=== PATIENT | male | born 1995 | race Caucasian/White ===

== ENCOUNTER 2020-04-11 10:28 | Emergency (ER) | payer MEDICAID ==
[~2020-04-11] VITALS: Ht 180.3 cm; Wt 88.0 kg
[2020-04-11 11:10] VITALS: BP 119/77
[2020-04-11] MEDS ORDERED: PALI273S IM (11:10)
== END 2020-04-11 12:04 | disposition home or self-care (01) ==
LOC: ED 11:35
DX: J06.9 Acute upper respiratory infection, unspecified (principal); Z20.828 Contact with and (suspected) exposure to other viral communicable diseases
CPT/HCPCS: 71045; 99284; U0001

== ENCOUNTER 2020-12-03 16:32 | Emergency (ER) | payer MEDICAID ==
[~2020-12-03] VITALS: Ht 180.3 cm; Wt 97.2 kg
[~2020-12-03 16:32] MED LIST: PALI273S IM
--- NOTE | 2020-12-03 18:06 | NUR ---
[employer]: PT AMBULATORY TO ROOM FROM LOBBY AT THIS TIME WITH STEADY GAIT WITH ED TECHS.
[2020-12-03 18:19] VITALS: BP 125/66
--- NOTE | 2020-12-03 18:19 | NUR ---
PT CALMLY LAYING ON GURNEY, NAD/VSS, RESPONDS TO STAFF APPROPRIATELY. CALL LIGHT WITHIN REACH. NO NEEDS AT THIS TIME.
== END 2020-12-03 19:52 | disposition home or self-care (01) ==
LOC: ED 18:49
DX: F15.10 Other stimulant abuse, uncomplicated (principal); F25.9 Schizoaffective disorder, unspecified; F31.9 Bipolar disorder, unspecified
CPT/HCPCS: 99281